=== PATIENT | male | born 1965 | race Caucasian/White ===

== ENCOUNTER → 2020-04-22 10:09 | Outpatient (BNVA) | payer MEDICARE, SELFPAY | PROVIDERS: PCP Internal Medicine; Referring Provider Internal Medicine; Visit Provider Psychiatry & Neurology Neurology | DX: G35 Multiple sclerosis (principal); G43.009 Migraine without aura, not intractable, without status migrainosus; R53.83 Other fatigue; R26.89 Other abnormalities of gait and mobility; R41.3 Other amnesia | CPT/HCPCS: 99205 ==

== ENCOUNTER → 2020-10-21 11:15 | Outpatient (BNVA) | payer MEDICARE, SELFPAY | PROVIDERS: PCP Internal Medicine; Referring Provider Internal Medicine; Visit Provider Psychiatry & Neurology Neurology | DX: R53.83 Other fatigue (principal); G35 Multiple sclerosis; G43.009 Migraine without aura, not intractable, without status migrainosus; R26.89 Other abnormalities of gait and mobility; R41.3 Other amnesia | CPT/HCPCS: 99215 ==

== ENCOUNTER → 2021-04-21 11:10 | Outpatient (BNVA) | payer MEDICARE, SELFPAY | PROVIDERS: PCP Internal Medicine; Referring Provider Internal Medicine; Visit Provider Psychiatry & Neurology Neurology | DX: G35 Multiple sclerosis (principal); G43.009 Migraine without aura, not intractable, without status migrainosus; R53.83 Other fatigue; R26.89 Other abnormalities of gait and mobility; R41.3 Other amnesia | CPT/HCPCS: 99213 ==

== ENCOUNTER → 2022-04-20 11:09 | Outpatient (BNVA) | payer MEDICARE, SELFPAY | PROVIDERS: PCP Internal Medicine; Referring Provider Internal Medicine; Visit Provider Psychiatry & Neurology Neurology | DX: G35 Multiple sclerosis (principal); G43.009 Migraine without aura, not intractable, without status migrainosus; R53.83 Other fatigue; R41.3 Other amnesia; H53.9 Unspecified visual disturbance | CPT/HCPCS: 99215 ==

== ENCOUNTER → 2022-12-22 10:23 | Outpatient (BNVA) | payer MEDICARE, SELFPAY | PROVIDERS: PCP Internal Medicine; Referring Provider Internal Medicine; Visit Provider Psychiatry & Neurology Neurology | DX: G35 Multiple sclerosis (principal); G43.009 Migraine without aura, not intractable, without status migrainosus; G47.33 Obstructive sleep apnea (adult) (pediatric); R41.3 Other amnesia; M62.830 Muscle spasm of back | CPT/HCPCS: 99214 ==

== ENCOUNTER → 2023-04-19 10:17 | Outpatient (BNVA) | payer MEDICARE, SELFPAY | PROVIDERS: PCP Internal Medicine; Referring Provider Internal Medicine; Visit Provider Psychiatry & Neurology Neurology | DX: G43.009 Migraine without aura, not intractable, without status migrainosus (principal); R53.83 Other fatigue; R41.3 Other amnesia; G35 Multiple sclerosis; R26.89 Other abnormalities of gait and mobility | CPT/HCPCS: 99214 ==

== ENCOUNTER → 2023-08-07 10:13 | Outpatient (BNVA) | payer MEDICARE, SELFPAY | PROVIDERS: PCP Internal Medicine; Referring Provider Internal Medicine; Visit Provider Psychiatry & Neurology Neurology | DX: G35 Multiple sclerosis (principal); R26.89 Other abnormalities of gait and mobility; G43.009 Migraine without aura, not intractable, without status migrainosus; H93.13 Tinnitus, bilateral; R53.83 Other fatigue; R41.3 Other amnesia | CPT/HCPCS: 99214 ==

== ENCOUNTER → 2023-09-25 09:16 | Outpatient (BNVA) | payer MEDICARE, SELFPAY | PROVIDERS: PCP Internal Medicine; Referring Provider Internal Medicine; Visit Provider Psychiatry & Neurology Neurology | DX: H93.13 Tinnitus, bilateral (principal); G43.009 Migraine without aura, not intractable, without status migrainosus; R53.83 Other fatigue; R41.3 Other amnesia; G35 Multiple sclerosis; R26.89 Other abnormalities of gait and mobility | CPT/HCPCS: 99213 ==

== ENCOUNTER → 2024-03-25 08:45 | Outpatient (BNVA) | payer MEDICARE, SELFPAY | PROVIDERS: PCP Internal Medicine; Referring Provider Internal Medicine; Visit Provider Psychiatry & Neurology Neurology | DX: G43.009 Migraine without aura, not intractable, without status migrainosus (principal); R53.83 Other fatigue; R41.3 Other amnesia; G35 Multiple sclerosis; R26.89 Other abnormalities of gait and mobility; H93.19 Tinnitus, unspecified ear | CPT/HCPCS: 99213 ==

== ENCOUNTER → 2024-05-30 09:36 | Outpatient (BNVA) | payer MEDICARE, SELFPAY | PROVIDERS: PCP Internal Medicine; Referring Provider Internal Medicine; Visit Provider Psychiatry & Neurology Neurology | DX: G43.009 Migraine without aura, not intractable, without status migrainosus (principal); R53.83 Other fatigue; R41.3 Other amnesia; R13.10 Dysphagia, unspecified; G35 Multiple sclerosis; R26.89 Other abnormalities of gait and mobility | CPT/HCPCS: 99213 ==

== ENCOUNTER → 2024-07-05 08:24 | Outpatient (BNVA) | payer MEDICARE, SELFPAY | PROVIDERS: PCP Internal Medicine; Referring Provider Internal Medicine; Visit Provider Physical Therapy Assistant | DX: Z12.11 Encounter for screening for malignant neoplasm of colon (principal) ==

== ENCOUNTER 2024-07-19 09:10 | Day surgery (SDC) | payer MEDICARE, SELFPAY ==
--- NOTE | 2024-07-18 11:41 | W.PM.DSUDISC ---
Date of service: 07/19/24 Time of Service: 11:56 Discharge Plan Disposition Patient Disposition: Home Condition: Good Discharge Details Reason For Visit: screening colonoscopy Attending Provider: Raymon Rodriguez Primary Care Provider: Opal Castillo Home Meds and New Rx's Prescriptions: Continued topiramate 50 mg tablet 50 mg PO QHS Qty: 90 3RF baclofen 10 mg tablet 10 mg PO DAILY PRN (Reason: back spasms) Qty: 90 3RF amitriptyline 10 mg tablet 20 mg PO QHS Qty: 180 3RF metoprolol succinate 25 mg tablet extended release 24 hr 50 mg PO DAILY Rx Instructions: takes 50mg in the morning. takes 12.5 mg at HS. omeprazole 20 MG capsule,delayed release(DR/EC) 40 mg PO HS sildenafil 100 mg tablet 100 mg PO DAILY PRN Rx Instructions: administer 30 minutes to 4 hours before activity metronidazole 1 % cream 1 applic topical DAILY ascorbic acid (vitamin C) [Vitamin C] 1,000 MG tablet 1,000 mg PO DAILY cholecalciferol (vitamin D3) [Vitamin D3] 2,000 UNIT capsule 2,000 unit PO DAILY Discontinued bisacodyl [Dulcolax (bisacodyl)] 5 mg tablet,delayed release (DR/EC) 5 mg PO ONCE Qty: 4 0RF Rx Instructions: Take per colonoscopy instructions provided by ordering providers office polyethylene glycol 3350 17 gram/dose powder 17 g PO ONCE Qty: 238 0RF Rx Instructions: Take per colonoscopy instructions provided by ordering providers office Discharge Instructions Additional Instructions: Jarvis, I hope you are comfortable during the procedure. The colonoscopy went very smoothly. Everything is normal inside, and I did not see any signs of tumors or polyps. I would recommend considering another screening colonoscopy in 10 years. If anything changes in the interim, I would suggest following up with her primary care physician for further recommendations. If you need anything, or have any questions at all, please do not hesitate to ask. 1. If tolerated, consume a soft, low fiber diet for 1-2 days. 2[address] Do not drive, drink alcohol, operate machinery, make critical decisions, or do activities that require coordination or balance for 24 hours. 3. Because air was put into your colon during the procedure, expelling air from your rectum (passing gas or farting) is normal. 4. You may not have a bowel movement for 1-3 days because of the colonoscopy prep. This is normal. 5. Go directly to the emergency room if you notice any of the following: Develop chills (warm to touch), or if you have a thermometer and your temperature is above 101 Difficulty breathing or difficultly swallowing Persistent vomiting Severe abdominal pain, other than gas cramps Severe chest pain Black, tarry stools Any bleeding ? exceeding one tablespoon 6. Call your physician if the site where your intravenous was started becomes red, swollen, painful, and warm to touch. 7. Your physician has reviewed your pre-procedure medications. Please continue to take those medications as previously ordered. You will be given specific information/education regarding any changes to your medications before leaving. Stand Alone Forms: Anesthesia Discharge InstAlida, Christiano Burciaga (DSU) Activity:: Activity as Tolerated Diet:: As Tolerated Discharge Orders Discharge Orders: Discharge Order (Routine); Ordered 07/18/24 Ordered By: Raymon Rodriguez DS: Diagnosis Discharge Diagnosis (1) Encounter for screening colonoscopy: Status: Acute Asessment and Plan: Negative screening colonoscopy; recommend 10-year follow-up
--- NOTE | 2024-07-18 11:44 | W.COLOREPORT ---
Date of service: 07/19/24 Time of Service: 11:58 Colonoscopy Report Date of procedure: 07/19/24 Pre-op diagnosis general: screening colonoscopy Post-op diagnosis procedure note: other (Negative screening colonoscopy) Procedure: colonoscopy Surgeon: Raymon Rodriguez Anesthesia Type: General:No Airway Estimated blood loss (mL): 0 Pathology: none sent Complications: None Disposition: same day Indications: Jarvis is a 59 year old man who needs a screening colonoscopy Prep: Miralax/Dulcolax Procedure Start Time: 11:40 Procedure End Time: 11:49 Retraction Time: 5 Findings: Negative screening colonoscopy Procedure Description: With Jarvis in the left lateral decubitus position, anesthesia was initiated. There was poor response to propofol infusion, and some concern regarding the integrity of the IV. Therefore a new intravenous was placed, and the anesthesia was reintroduced. Once moderate close appropriately sedated, I began by performing an external anorectal exam.? Perineum and skin were normal, as was the anal verge.? There was no evidence of external hemorrhoids.? Next, I performed a digital rectal exam.? I did did not appreciate any abnormal findings.? Next, I advanced a colonoscope into the rectal vault.? I performed retroflexion.? This appeared normal.? Using insufflation, I then advanced the colonoscope beyond the rectal folds and into the sigmoid colon before advancing towards the cecum.? The quality of the prep was acceptable.? The scope was noted to be in the cecum by identification of the ileocecal valve and appendiceal orifice.? I then began withdrawing the colonoscope using repeated irrigation as necessary for full evaluation of the colonic mucosa. ?Once the scope was withdrawn to the level of the rectum, great care was taken to examine portions of the rectal folds.? I did not see any signs of tumors, polyps, or any other abnormalities. Finally, the scope was withdrawn and the patient was brought to the same-day surgery recovery unit as the anesthetic wore off. ?The findings and instructions were shared with the patient prior to discharge. [place] Bowel Prep [place] Bowel Prep Right Colon: 3 Left Colon: 3 Transverse Colon: 3 Total Score: 9
[2024-07-19 09:15] VITALS: BP 119/84; PULSE 73; RESP 16; TEMP 36; O2SAT 100
[2024-07-19] MEDS: Lactated Ringers 1,000 ML 80 ML IV (09:48)
--- NOTE | 2024-07-19 11:07 | W.ANESPRE ---
General Info Date of Service Date Performed: 07/19/24 Height: 5 ft 10.5 in Weight: 97.1 kg Body Mass Index (BMI): 30.2 Surgical Procedure: Operation Date: 07/19/24 10:35 Proposed Procedure Side Surgeon sergey Rodriguez MD Meds Allergies and Home Medications Allergies Allergy/AdvReac Type Severity Reaction Status Date / Time No Known Allergies Allergy Verified 07/19/24 09:28 Home Medication ?Medication ?Instructions ?Recorded omeprazole 20 mg capsule,delayed 40 mg PO HS 10/13/16 release ascorbic acid (vitamin C) 1,000 mg 1,000 mg PO DAILY 10/27/16 tablet (Vitamin C) cholecalciferol (vitamin D3) 50 2,000 unit PO DAILY 10/27/16 mcg (2,000 unit) capsule (Vitamin D3) amitriptyline 10 mg tablet 20 mg (2 x 10 mg) PO QHS #180 tabs 03/25/24 baclofen 10 mg tablet 10 mg PO DAILY PRN back spasms #90 03/25/24 tabs topiramate 50 mg tablet 50 mg PO QHS #90 tabs 03/25/24 metoprolol succinate 25 mg 50 mg PO DAILY 05/30/24 tablet,extended release 24 hr metronidazole 1 % topical cream 1 applic topical DAILY 05/30/24 sildenafil 100 mg tablet 100 mg PO DAILY PRN 05/30/24 Current Visit Medications: Current Medications Generic Name Dose Route Start Last Admin Trade Name Freq PRN Reason Stop Dose Admin Hyoscyamine Sulfate 0.125 mg 07/18/24 11:46 Hyoscyamine 0.125 Mg Sl/Oral/Chew SL 08/17/24 11:45 DIRECTED PRN Ringer's Solution 1,000 mls @ 80 mls/hr 07/19/24 06:00 07/19/24 09:48 IV 07/19/24 23:59 80 mls/hr INFUSION BOBBY Administration IV Miscellaneous Supplies 1 each 07/19/24 06:00 Iv Access IV 07/19/24 23:59 DIRECTED BOBBY Ondansetron HCl 4 mg 07/18/24 11:46 Ondansetron 4 Mg/2 Ml Vial IVP 08/17/24 11:45 Q4H PRN PRN Nausea / Vomiting Sodium Chloride 0 ml 07/19/24 06:00 Normal Saline Flush 10 Ml Syr IV 07/19/24 23:59 PRN PRN Sodium Chloride 0 ml 07/19/24 06:00 Normal Saline 10 Ml Vial IJ 07/19/24 23:59 DIRECTED PRN Sterile Water 0 ml 07/19/24 06:00 Water,Injection,Sterile 10 Ml Vial IJ 07/19/24 23:59 DIRECTED PRN PFSH Active Problems Active Problems: Problem Status Onset Code Encounter for screening colonoscopy Acute Z12.11 Dysphagia Acute R13.10 Tinnitus Acute H93.19 Multiple sclerosis Chronic G35 Imbalance Acute R26.89 Fatigue Acute R53.83 Migraine headache without aura Acute G43.009 Medical History Medical History Erectile disorder GERD (gastroesophageal reflux disease) Esophageal dysmotility History of depression Reflux laryngitis Surgical History Surgical History S/P wisdom tooth extraction S/P hernia repair EGD - MAC (10/28/16) Tobacco Smoking/Tobacco Use Status: Never Alcohol Alcohol Intake: current Alcohol intake frequency: a few times a month Alcohol type: beer Details: 1-2 TIMES PER MONTH Substance Use Substance use: Never Substance use type: does not use Vital Signs and Lab Results Vital Signs Most Recent Vital Signs in EMR: Most Recent Vital Signs Temp Pulse Resp BP Pulse Ox 36 C L 73 16 119/84 100 07/19/24 09:15 07/19/24 09:15 07/19/24 09:15 07/19/24 09:15 07/19/24 09:15 Lab Results Blood Type / Crossmatch: No Data to Display Complete Blood Count: No Data to Display Complete Metabolic Panel: No Data to Display Liver Function Panel: No Data to Display Coagulation Panel: No Data to Display Cardiac Panel: No Data to Display Arterial Blood Gas: No Data to Display Venous Blood Gas: No Data to Display Pancreas Panel: No Data to Display Thyroid Panel: No Data to Display Infectious Disease: No Data to Display Blood Cultures: No Data to Display Toxicology Panel: No Data to Display Anesthesia Assessment and Plan Anesthesia History Personal History: No History of Anesthesia Complications Family History: No Family History of Anesthesia Complications Exercise Tolerance Exercise Tolerance: Metabolic Equivalents>4 Pertinent Negatives Pertinent Negatives: No Symptoms of GERD Cardiac & Pulmonary Exam Cardiac Exam: Normal S1/S2 Heart Sounds Pulmonary Exam: Clear Bilateral Breath Sounds Implantable Cardiac Device Does patient have a Pacemaker or an ICD?: No Airway Exam Known Difficult Airway: No Mallampati Class: 2 Mouth Opening: Normal (> 3cm) Thyromental Distance: Greater than 3 cm Neck Range of Motion: Full ROM Neck Circumference: Normal Teeth Condition: Normal Dentition ASA Classification ASA Score: ASA 3 Emergency Case?: No NPO Status NPO Status: NPO Clears >2 hours, Solids >8 hours Anesthesia Plan Resuscitation Status: Full Code Anesthesia Technique: General Anesthesia Airway Planned: Natural Airway Monitors Used: Standard Monitors
[2024-07-19 11:08] VITALS: BMI 30.2
[2024-07-19 11:59] VITALS: BP 86/53; PULSE 82; RESP 16; TEMP 36.4; O2SAT 100
[2024-07-19 12:26] VITALS: BP 112/80; PULSE 64; RESP 18; TEMP 36.4; O2SAT 100
--- NOTE | 2024-07-19 13:00 | W.ANESPOSTOP ---
Postoperative Evaluation Date, Time and Location Date Performed: 07/19/24 Time Performed: 13:00 Patient Location: Day Surgery Unit Vital Signs Most Recent Imported Vital Signs: Most Recent Vital Signs Temp Pulse Resp BP Pulse Ox 36.4 C L 64 18 112/80 100 07/19/24 12:26 07/19/24 12:26 07/19/24 12:26 07/19/24 12:07/19/24 12:26 Pain Score Most Recent Pain Score: Most Recent Pain Score Pain Level 0 07/19/24 12:26 Assessment Mental Status: Awake (Alert & Oriented to Patient Baseline) Airway and Respiratory Function: Patent airway with normal (patient baseline) respiratory exam Cardiovascular Function: Hemodynamically Stable Hydration Status: Adequately Hydrated Nausea & Vomiting: No Nausea or Vomiting Pain: Pt. Denies Any Pain Peripheral Nerve Block: Patient did not receive a nerve block Postoperative Comments:: Infiltration checked in right upper arm. Swelling better, tissue is pink and healthy (not erythemic). Arm re-wrapped with instructions given to spouse. Giselle Mendoza CRNA
== END 2024-07-19 13:20 | disposition home or self-care (01) ==
LOC: SUR 09:11
PROVIDERS: PCP Internal Medicine; Visit Provider Surgery
PROC: 0DJD8ZZ Inspection of Lower Intestinal Tract, Via Natural or Artificial Opening Endoscopic (ICD-10-PCS; CPT 45378; principal; 2024-07-19 10:30)
DX: Z12.11 Encounter for screening for malignant neoplasm of colon (principal)
CPT/HCPCS: G0121; J2003; J2704

== ENCOUNTER → 2024-09-23 08:57 | Outpatient (BNVA) | payer MEDICARE, SELFPAY | PROVIDERS: PCP Internal Medicine; Visit Provider Psychiatry & Neurology Neurology | DX: G43.009 Migraine without aura, not intractable, without status migrainosus (principal); R53.83 Other fatigue; R41.3 Other amnesia; R13.10 Dysphagia, unspecified; G35 Multiple sclerosis | CPT/HCPCS: 99214 ==

== ENCOUNTER → 2025-03-19 10:16 | Outpatient (BNVA) | payer MEDICARE, SELFPAY | PROVIDERS: PCP Internal Medicine; Referring Provider Internal Medicine; Visit Provider Psychiatry & Neurology Neurology | DX: G43.009 Migraine without aura, not intractable, without status migrainosus (principal); R53.83 Other fatigue; R26.89 Other abnormalities of gait and mobility; R41.3 Other amnesia; G35 Multiple sclerosis; R13.10 Dysphagia, unspecified; M54.50 Low back pain, unspecified | CPT/HCPCS: 99214 ==

== ENCOUNTER → 2025-07-01 08:45 | Outpatient (BNVA) | payer MEDICARE, SELFPAY | PROVIDERS: PCP Internal Medicine; Referring Provider Internal Medicine; Visit Provider Psychiatry & Neurology Neurology | DX: G43.009 Migraine without aura, not intractable, without status migrainosus (principal); R53.83 Other fatigue; R26.89 Other abnormalities of gait and mobility; R41.3 Other amnesia; G35 Multiple sclerosis; H93.19 Tinnitus, unspecified ear; R13.10 Dysphagia, unspecified | CPT/HCPCS: 99214 ==

== ENCOUNTER 2025-07-09 03:28 | Outpatient (CLI) | payer MEDICARE, SELFPAY ==
--- NOTE | 2025-07-09 | DI.RAD_ITS ---
Exam(s) RF MODIFIED SPEECH BA SWALLOW EXAM: RF MODIFIED SPEECH BA SWALLOW CLINICAL HISTORY: ASPIRATION EVAL AND TREAT TECHNIQUE: Modified barium swallow was performed in conjunction with speech pathology. CONTRAST MATERIAL: Multiple consistencies of oral barium contrast were administered. COMPARISON: No exams were available for comparison FINDINGS: Note that this is not a dedicated esophagram, distal esophagus not evaluated. There is no evidence of aspiration or penetration with any consistency. There is no significant residue in the vallecular or piriform sinuses. Speech pathology report to follow. IMPRESSION: No evidence of aspiration or penetration. RADIATION DOSE DELIVERED: renetta Oliver=9.6 mGy
[2025-07-09] MEDS: Barium Sulfate 700 MG TAB PO (14:57)
[2025-07-09] MEDS: Barium Sulfate 81% w/w for Oral Suspension 148 GM BTL PO (14:58)
[2025-07-09] MEDS: Barium Sulfate Oral Paste 40% W/V 230 ML TUBE PO (14:59)
[2025-07-09] MEDS: Barium Sulfate 40% W/V 240 ML BTL PO (15:00)
--- NOTE | 2025-07-09 15:06 | ST.MBS_ITS ---
Date of Service Date of service: 07/09/25 Time of Service: 14:45 Modified Barium Swallow Study Findings: Video fluoroscopic Swallowing Evaluation (VFSE) / Modified Barium Swallow Study (MBSS) Speech Language Pathology Report Patient referred for VFSE/MBSS from Dr. Castillo given coughing with PO intake reported to MD and upon recommendation of COMMERCIAL SERVICE TECHNICIAN given results of recent non- instrumental clinical swallow evaluation. HPI & Patient report of function: Jarvis is a 60 y/o with longstanding MS diagnosis, now secondary progressive. Medical history is also significant for GERD (on 40mg omeprazole in evenings), migrains, mild BEL, and recent COVID infection. Referred to COMMERCIAL SERVICE TECHNICIAN due to occasional coughing with PO intake reported to MD. He reports he had an MBSS a bout 10 years ago, he does not recall being told that he was aspirating at that time. Chest x-ray from October 2024 indicated no infiltrates. Non-instrumental COMMERCIAL SERVICE TECHNICIAN evaluation indicated suspected mild oral-pharyngeal dysphagia with cough and tightness of airway and voice loss associated with swallowing difficulty secondary (muscle tension vs GERD vs aspiration events). MBSS was recommended to rule out aspiration and help direct treatment/recommendations. IMPRESSIONS: Dysphagia diagnosis: Overall swallow function appears safe/WFL. No aspiration or penetration occurred, swallow was timely and coordinated, and there was minimal pharyngeal residue overall. Patient did not experience any coughing episodes events during the exam. Noting some minor rough borders in the proximal esophagus in the lateral view but did not functionally impact bolus flow. Given baseline dx of GERD, as well as associated voice sx reported by the patient, and in light of progressing MS dx, patient would likely benefit from voice therapy to address symptoms and for MS education as relates to voice and swallow function, if he is motivated to do so. Patient verbalized understanding of this recommendation and plans to reach out to our office if/when he is ready to engage in treatment. Swallow safety: Patient appears to be at low risk for potential aspiration PNA and/or pulmonary compromise. Swallow efficiency: Patient appears to be at low risk for malnutrition, low risk for dehydration. RECOMMENDATIONS: Diet Texture Recommendation:? IDDSI LEVEL SOLIDS 7-Regular Solids LIQUIDS 0-Thin Liquids Please see further details at?[email or web address] MEDICATIONS Whole with 0-Thin Liquids Diet texture modification is per patient's preference; please adjust diet textures at patient's discretion & collaboration with care team. Do not alter medications (e.g., cut)? without advice from your MD or pharmacist. Risk Management Strategies:? Behavioral reflux precautions, including upright position during + 90 mins after meals. Small sips, approx 10 mL Control risk factors for aspiration pneumonia via (a) thorough oral hygiene & (b) maintaining physical mobility as tolerated Patient appears to be a good candidate for behavioral swallow rehabilitation. PLAN: Patient is welcome to reach out for voice tx/MS education for speech/swallow. Please re-refer if more than 6 months has passed. Recommend repeat VFSE/MBSS if significant change in symptom/risk profile occurs. OBJECTIVE Videofluoroscopic Swallow Evaluation (VFSE/MBSS) was conducted in the lateral and [id number] projection by Speech-Language Pathologist, in collaboration with Radiologist, to evaluate oropharyngeal swallow function. Oral-Motor/Peripheral Screening: N/A: Completed in prior clinic visit/with treating clinician Anatomic view under fluoroscopy: Noting some minor rough borders in the proximal esophagus in the lateral view but did not functionally impact bolus flow. PO Barium Contrast Trials Oral barium water-soluble contrast was administered as follows: IDDSI Level 0 Varibar thin liquid (40% w/v) IDDSI Level 2 Varibar nectar thick/mildly thick liquid (40% w/v) IDDSI Level 4 Varibar pudding/pureed/extremely thick (40% w/v) IDDSI Level 7 Regular Solid: 1/2 nikolai cracker coated in 3 mL Varibar pudding 13 mm barium tablet taken with Thin Liquids. MBSImP Component Scores: COMPONENT Scale SCORE 1 Lip closure (0-4) 0 Resulted in no labial escape 2 Hold Position (0-3) 0 Maintained a cohesive bolus between tongue to palatal seal 3 Bolus Preparation (0-4) 0 Resulted in timely and efficient chewing and mashing 4 Bolus Transport (0-4) 1 Demonstrated delayed initiation of tongue motion 5 Oral Residue (0-4) 1 Was a trace, lining oral structures 6 Swallow Initiation (0-4) 1 Occurred when the bolus head was in valleculae 7 Soft Palate Elevation (0-4) 0 Resulted in no bolus between soft palate and the pharyngeal wall 8 Laryngeal Elevation (0-3) 0 Demonstrated complete superior movement of thyroid cartilage with complete approximation of arytenoids to epiglottic petiole 9 Anterior Hyoid Motion (0-2) 0 Demonstrated complete anterior movement 10 Epiglottic Movement (0-2) 0 Resulted in complete inversion 11 Laryngeal Closure (0-2) 0 Was complete with no air or contrast in laryngeal vestibule 12 Pharyngeal Stripping Wave (0-2) 0 Was present and complete 13 Pharyngeal Contraction (0-3) 0 Was complete 14 PES Opening (0-3) 0 Was completely distended and complete duration with no obstruction of flow 15 Tongue Base Retraction (0-4) 1 Allowed a trace column of contrast or air between tongue base and pharyngeal wall 16 Pharyngeal Residue (0-4) 1 Showed a trace within or on pharyngeal structures 17 Esophageal Clearance (0-4) 0 Was complete, with only a coating of contrast, if any Results: COMPONENT Scale SCORE 1 Oral Score (0-18) 2 2 Pharyngeal Score (0-29) 0 3 Esophageal Score (0-4) 0 Penetration-Aspiration Scale: COMPONENT Scale SCORE 1 Thin liquid (1-8) 1 Contrast did not enter the airway 2 [place] thick (1-8) 2 Contrast entered the airway, remained above the vocal folds, and was ejected from the airway. 3 Honey thick (1-8) NA 4 Pudding thick (1-8) 1 Contrast did not enter the airway 5 Cookie (1-8) 1 Contrast did not enter the airway Di Pharyngeal Residue Severity Rating Scale (YPRS) (Marcin, et al, 2015) Vallecula Residue Severity II Trace 1-5% Trace coating of the mucosa Pyriform Sinus Residue Severity II Trace 1-5% Trace coating of the mucosa Trialed Compensatory Strategies & Outcome: Maneuvers Successful (+) Unsuccessful (-) Postures Successful (+) Unsuccessful (-) 3 second Preparatory Set? ? [place] Po sture? ? Cough? ? Posterior Head tilt? Reflexive? Cued? Throat Clear? ? Head Tilt to? Reflexive? Left? Cued? Right? ? Saliva swallow? ?+ (oral residue) Head Turn/Rotate to? ? Supraglottic Swallow? Left? ? Super-supraglottic Swallow? Right? ? Bolus Modifications Successful (+) Unsuccessful (-) Delivery/Alternating Consistencies ? Follow with Liquid Wash ? Follow with Solid Bolus? Delivery/Via Straw? ? Reduced Volume? ?+/- Reduced Rate of Intake? ? Increased Viscosity? ?+/- Other:?? ? Thank you for allowing us to take part in this patient's care. Please feel free to contact the [facility] Speech Language Pathology Department with any questions/concerns.
== END 2025-07-09 03:48 ==
PROVIDERS: PCP Internal Medicine; Visit Provider Internal Medicine
DX: R13.10 Dysphagia, unspecified (principal); K21.9 Gastro-esophageal reflux disease without esophagitis
CPT/HCPCS: 92526; 74221